=== PATIENT | male | born 1960 | race Caucasian/White ===

== ENCOUNTER → 2019-11-28 11:45 | Outpatient (CLI) | payer OTHER, MEDICAID, SELFPAY | PROVIDERS: PCP Family Medicine; Referring Provider Internal Medicine Hematology & Oncology; Visit Provider Family Medicine | DX: K13.79 Other lesions of oral mucosa (principal); A42.9 Actinomycosis, unspecified; J44.9 Chronic obstructive pulmonary disease, unspecified; Z85.818 Personal history of malignant neoplasm of other sites of lip, oral cavity, and pharynx; Z87.891 Personal history of nicotine dependence; N18.3 Chronic kidney disease, stage 3 (moderate); Z92.3 Personal history of irradiation | CPT/HCPCS: 99203; 99212 ==

== ENCOUNTER → 2019-11-28 13:04 | Outpatient (CLI) | payer OTHER, MEDICAID, SELFPAY | PROVIDERS: PCP Family Medicine; Referring Provider Internal Medicine Hematology & Oncology; Visit Provider Family Medicine | DX: K13.79 Other lesions of oral mucosa (principal); A42.9 Actinomycosis, unspecified; J44.9 Chronic obstructive pulmonary disease, unspecified; Z85.818 Personal history of malignant neoplasm of other sites of lip, oral cavity, and pharynx; Z87.891 Personal history of nicotine dependence; N18.3 Chronic kidney disease, stage 3 (moderate); Z92.3 Personal history of irradiation ==

== ENCOUNTER → 2019-12-01 14:09 | Outpatient (CLI) | payer OTHER, MEDICAID, SELFPAY ==
--- NOTE | 2019-12-01 | DI.RAD.S_ITS ---
PROCEDURE: XR CHEST 2V INDICATIONS: copd TECHNIQUE: 2 views of the chest were acquired. COMPARISON: None. FINDINGS: Surgical changes and devices: None. Lungs and pleura: Lungs are abnormal with large lung volumes consistent with COPD. No pleural effusions or pneumothorax. Mediastinum: Mediastinal contours are normal. Heart size is normal. Bones and chest wall: No suspicious bony abnormalities. Soft tissues appear unremarkable. IMPRESSION: No pneumonia or neoplasm found. Severe COPD. Dictated by: Preston Mendoza M.D. on 12/01/2019 at 14:59 Approved by: Preston Mendoza M.D. on 12/01/2019 at 15:00
== END ==
PROVIDERS: PCP Family Medicine; Referring Provider Family Medicine; Visit Provider Family Medicine
DX: J44.9 Chronic obstructive pulmonary disease, unspecified (principal)
CPT/HCPCS: 71046

== ENCOUNTER → 2019-12-22 10:32 | Outpatient (CLI) | payer OTHER, MEDICAID, SELFPAY | PROVIDERS: PCP Family Medicine; Referring Provider Family Medicine; Visit Provider Family Medicine | DX: L59.8 Other specified disorders of the skin and subcutaneous tissue related to radiation (principal) | CPT/HCPCS: 99212; 99213 ==

== ENCOUNTER → 2020-01-12 12:53 | Outpatient (CLI) | payer OTHER, MEDICAID, SELFPAY ==
--- NOTE | 2020-01-17 09:00 | PM.PFT.1 ---
Pulmonary Function Test Referral & Results Date Patient Seen: 01/12/20 Requesting provider: Mark Aguilar Results: The spirometry demonstrates an FVC of 3.49 L which is 59% of predicted. The FEV1 was measured at 1.94 L which is 44% of predicted. The FEV1/FVC ratio was 56 which is 73% of predicted. Following the administration of bronchodilator there was a 32% improvement in FEV1 and a 127% improvement in FEF 25-75%. No lung volumes or diffusing capacity were performed Interpretation: This study demonstrates severe obstructive lung disease with evidence of significant benefit following bronchodilator as above. Particularly, improvement was seen in small airway flow based on improvement in FEF 25-75% Clinical correlation suggested
== END ==
PROVIDERS: PCP Family Medicine; Referring Provider Family Medicine; Visit Provider Family Medicine
DX: J44.9 Chronic obstructive pulmonary disease, unspecified (principal); Z87.891 Personal history of nicotine dependence
CPT/HCPCS: 94060